=== PATIENT | male | born 1960 | race Caucasian/White ===

== ENCOUNTER 2017-06-06 11:37 | Inpatient (IN) | payer BC ==
[~2017-06-06] VITALS: Ht 177.8 cm; Wt 157.7 kg
[2017-06-06 13:23] LABS: Basophils # (auto) 0.1 uL; Hemoglobin 12.9 g/dL (13.5-17.5); Lymphocytes # (auto) 1.3 uL; Monocytes # (auto) 0.6 uL; White Blood Cell 6.9 10^3/uL (4.4-10.8)
[2017-06-06 13:25] LABS: Basophils % (auto) 0.8 % (0.0-2.0); Eosinophils # (auto) 0 uL; Eosinophils % (auto) 0.7 % (0.0-7.0); Hematocrit 40.2 % (41.0-53.0); Lymphocytes % (auto) 18.5 % (10.0-50.0); Mean Corpuscular Hemoglobin 26.6 pg (28.0-32.0); Mean Corpuscular Hgb Conc. 32.1 g/dL (32.0-36.0); Mean Corpuscular Volume 82.7 fL (80.0-100.0); Monocytes % (auto) 8.4 % (0.0-12.0); Neutrophils % (auto) 71.6 % (37.0-80.0); Nucleated Red Blood Cells % 0.1 %; Platelet Count (auto) 233 10^3/uL (140-450); Red Blood Cells 4.87 10^6/uL (4.5-5.90); Red Cell Distribution Width 15.5 % (11.8-14.3)
[2017-06-06 13:37] LABS: Urine Bacteria NONE SEEN /hpf (None Seen); Urine Blood Negative /uL (Negative); Urine Specific Gravity 1.007 (1.001-1.035); Urine WBC 1 /hpf (0 - 3)
[2017-06-06 13:42] LABS: INR 3.27 (0.9-1.15); Partial Thromboplastin Time 37.6 sec (22.64-33.71); Prothrombin Time 36.1 sec (9.37-12.3)
[2017-06-06 13:45] LABS: Alanine Aminotransferase 22 U/L (16-61); Albumin 3.6 g/dL (3.4-5.0); Alkaline Phosphatase 45 U/L (45-117); Anion Gap 9 (5-15); Aspartate Aminotransferase 23 U/L (15-37); Bilirubin, Total 0.9 mg/dL (0.2-1.0); Blood Urea Nitrogen 10 mg/dL (7-18); Calcium 8.5 mg/dL (8.5-10.1); Carbon Dioxide 28 mmol/L (21-32); Chloride 98 mmol/L (98-107); GFR African American 88 mL/min; GFR Non-African American 73 mL/min; Glucose 245 mg/dL (74-106); Potassium 3.6 mmol/L (3.5-5.1); Sodium 135 mmol/L (136-145); Total Protein 7.5 g/dL (6.4-8.2)
[2017-06-06] MEDS ORDERED: FUROSEMIDE 40 MG/4 ML VIAL IV ONE ×2 (15:45→16:00)
[2017-06-06] MEDS ORDERED: POTASSIUM CHL 10 Meq TABLET PO ONE ×2 (15:45→16:00)
[2017-06-06] MEDS ORDERED: SPIRONOLACTONE 25 MG TAB PO ONE ×2 (15:45→16:00)
[2017-06-06] MEDS ORDERED: DEXTROSE (50%) 50ML SYRG IV PRN (15:45)
[2017-06-06] MEDS ORDERED: MULTIPLE VITAMIN TAB PO ONE (16:00)
[2017-06-06] MEDS ORDERED: ACETAMINOPHEN 325 MG TAB PO PRN (16:00)
[2017-06-06] MEDS ORDERED: ONDANSETRON HCL 4 MG/2 ML VIAL IV PRN (16:00)
[2017-06-06] MEDS ORDERED: LOSARTAN POTASSIUM 50 MG TAB PO ONE (16:00)
[2017-06-06] MEDS ORDERED: METOPROLOL TARTRATE 25 MG TAB PO ONE (16:00)
[2017-06-06] MEDS ORDERED: MORPHINE SULFATE 4 MG/ML SYR/VIAL IV PRN ×2 (16:00)
[2017-06-06] MEDS ORDERED: NITROGLYCERIN 0.4 MG SL TAB SL PRN (16:00)
[2017-06-06] MEDS ORDERED: DILTIAZEM HCL 60 MG TAB PO ONE (16:00)
[2017-06-06] MEDS ORDERED: FAMOTIDINE 20 MG TAB PO ONE (16:00)
[2017-06-06] MEDS ORDERED: TEMAZEPAM 15 MG CAP PO PRN (16:00)
[2017-06-06] MEDS ORDERED: DOCUSATE SOD 100 MG CAP PO PRN (16:00)
[2017-06-06] MEDS: InsuLIN REG 1unit/0.01ml Soln (100units/ml) SC SCH (17:27)
[2017-06-06] MEDS: ACCU-CHEK COMFORT CURVE STRIP VI SCH ×2 (17:27→22:03)
[2017-06-06] MEDS ORDERED: INSULIN NPH Isophane (HUMAN) 1unit/0.01ml Susp(100units/ml) SC SCH (18:00)
[2017-06-06] MEDS: glyBURIDE 5 MG TAB PO SCH (18:30)
[2017-06-06] MEDS ORDERED: Niacin SR 500mg TAB PO SCH (22:00)
[2017-06-06] MEDS ORDERED: InsuLIN REG 1unit/0.01ml Soln (100units/ml) SC SCH (22:00)
[2017-06-06] MEDS: SODIUM CHLOR 0.9% PF (SALINE LOCK) 10ML VIAL IV SCH (22:03)
[2017-06-06] MEDS: METOPROLOL TARTRATE 25 MG TAB PO SCH (22:12)
[2017-06-06] MEDS: DILTIAZEM HCL 60 MG TAB PO SCH (22:13)
[2017-06-06] MEDS: FAMOTIDINE 20 MG TAB PO SCH (22:13)
[2017-06-07] VITALS (9 sets, daily range): BP systolic 120–134; BP diastolic 66–89
[2017-06-07] MEDS ORDERED: INSUINJ2 SC (02:59)
[2017-06-07] MEDS ORDERED: FURO40TA4 PO (02:59)
[2017-06-07] MEDS ORDERED: METO25TA5 PO (02:59)
[2017-06-07] MEDS ORDERED: METF-372 PO (02:59)
[2017-06-07] MEDS ORDERED: GLYB5TAB8 PO (02:59)
[2017-06-07] MEDS ORDERED: LOSA100T27 PO (02:59)
[2017-06-07] MEDS ORDERED: POTA-167 PO (02:59)
[2017-06-07] MEDS ORDERED: WARF6TAB21 PO ×2 (02:59)
[2017-06-07] MEDS ORDERED: NIAC500C3 PO (02:59)
[2017-06-07] MEDS ORDERED: FENO160T8 PO (02:59)
[2017-06-07] MEDS ORDERED: DILT60TA27 PO (02:59)
[2017-06-07] MEDS: DILTIAZEM HCL 60 MG TAB PO SCH ×3 (05:37→13:42)
[2017-06-07] MEDS: SODIUM CHLOR 0.9% PF (SALINE LOCK) 10ML VIAL IV SCH ×2 (05:37→13:57)
[2017-06-07] MEDS: glyBURIDE 5 MG TAB PO SCH (06:08)
[2017-06-07] MEDS: ACCU-CHEK COMFORT CURVE STRIP VI SCH ×3 (06:09→18:43)
[2017-06-07] MEDS: InsuLIN REG 1unit/0.01ml Soln (100units/ml) SC SCH ×3 (06:09→18:43)
[2017-06-07 06:37] LABS: Basophils # (auto) 0 uL; Basophils % (auto) 0.7 % (0.0-2.0); Eosinophils # (auto) 0.1 uL; INR 2.43 (0.9-1.15); Lymphocytes # (auto) 1.3 uL; Mean Corpuscular Hemoglobin 26.8 pg (28.0-32.0); Mean Corpuscular Hgb Conc. 32.1 g/dL (32.0-36.0); Mean Corpuscular Volume 83.4 fL (80.0-100.0); Prothrombin Time 26.7 sec (9.37-12.3)
[2017-06-07 06:40] LABS: Eosinophils % (auto) 1.2 % (0.0-7.0); Hematocrit 38.1 % (41.0-53.0); Hemoglobin 12.2 g/dL (13.5-17.5); Lymphocytes % (auto) 19.8 % (10.0-50.0); Monocytes # (auto) 0.7 uL; Neutrophils # (auto) 4.4 uL; Neutrophils % (auto) 67.3 % (37.0-80.0); Nucleated Red Blood Cells % 0.1 %; Platelet Count (auto) 203 10^3/uL (140-450); Red Blood Cells 4.56 10^6/uL (4.5-5.90); Red Cell Distribution Width 15.9 % (11.8-14.3); White Blood Cell 6.5 10^3/uL (4.4-10.8)
[2017-06-07] MEDS ORDERED: INSULIN NPH Isophane (HUMAN) 1unit/0.01ml Susp(100units/ml) SC SCH (07:00)
[2017-06-07 07:11] LABS: BUN/Creatinine Ratio 11.7; Potassium 3.3 mmol/L (3.5-5.1)
[2017-06-07 07:12] LABS: Albumin 3.4 g/dL (3.4-5.0); Bilirubin, Total 1.1 mg/dL (0.2-1.0); Calcium 8.8 mg/dL (8.5-10.1); Total Protein 6.9 g/dL (6.4-8.2)
[2017-06-07] MEDS ORDERED: ADENOSINE 132 MG in GIVE UN-DILUTED 0 ML IV STA (08:36)
[2017-06-07] MEDS ORDERED: POTASSIUM CHL 10 Meq TABLET PO SCH (10:00)
[2017-06-07] MEDS ORDERED: MULTIPLE VITAMIN TAB PO SCH (10:00)
[2017-06-07] MEDS ORDERED: FENOFIBRATE 160MG TAB PO SCH (10:00)
[2017-06-07] MEDS ORDERED: LOSARTAN POTASSIUM 50 MG TAB PO SCH (10:00)
[2017-06-07] MEDS ORDERED: SPIRONOLACTONE 25 MG TAB PO SCH (10:00)
[2017-06-07] MEDS ORDERED: FUROSEMIDE 40 MG/4 ML VIAL IV SCH (10:00)
[2017-06-07] MEDS ORDERED: OPTISON 3ml Vial for INJ IV ONE (12:41)
[2017-06-07] MEDS: FAMOTIDINE 20 MG TAB PO SCH (13:42)
[2017-06-07] MEDS: METOPROLOL TARTRATE 25 MG TAB PO SCH (13:43)
[2017-06-07] MEDS ORDERED: SPIR25TA88 PO (15:09)
[2017-06-07] MEDS ORDERED: WARFARIN SODIUM 2 MG TAB PO ONE (17:00)
== END 2017-06-07 19:30 | disposition home health service (06) | DRG 291 ==
LOC: ER 11:37 → TELE 11:38 → TELE-CENTR 23:47
PROVIDERS: ADMIT Internal Medicine; ATTEND Internal Medicine
PROC: 5A09357 Assistance with Respiratory Ventilation, Less than 24 Consecutive Hours, Continuous Positive Airway Pressure (ICD-10-PCS; principal; 2017-06-07)
DX: I13.0 Hypertensive heart and chronic kidney disease with heart failure and stage 1 through stage 4 chronic kidney disease, or unspecified chronic kidney disease (principal); I50.43 Acute on chronic combined systolic (congestive) and diastolic (congestive) heart failure; E11.21 Type 2 diabetes mellitus with diabetic nephropathy; I48.92 Unspecified atrial flutter; E11.22 Type 2 diabetes mellitus with diabetic chronic kidney disease; E66.01 Morbid (severe) obesity due to excess calories; Z79.01 Long term (current) use of anticoagulants; I48.0 Paroxysmal atrial fibrillation; E87.1 Hypo-osmolality and hyponatremia; Z68.42 Body mass index [BMI] 45.0-49.9, adult; D63.8 Anemia in other chronic diseases classified elsewhere; G47.33 Obstructive sleep apnea (adult) (pediatric); E78.5 Hyperlipidemia, unspecified; I48.2 Chronic atrial fibrillation; N18.2 Chronic kidney disease, stage 2 (mild); Z79.4 Long term (current) use of insulin; Z82.49 Family history of ischemic heart disease and other diseases of the circulatory system; Z83.3 Family history of diabetes mellitus; Z88.6 Allergy status to analgesic agent
CPT/HCPCS: 36415; 71046; 78452; 80053; 81001; 82962; 83036; 83880; 84443; 84484; 85025; 85610; 85730; 93005; 93017; 93306; 93970; 94660; J0153; J1815; Q9956

== ENCOUNTER 2019-04-10 13:08 | Inpatient (IN) | payer BC, OTHER ==
[~2019-04-10] VITALS: Ht 182.9 cm; Wt 148.1 kg
[~2019-04-10 13:08] MED LIST: DILT60TA27 PO; FENO160T8 PO; FURO40TA4 PO; GLYB5TAB8 PO; INSUINJ2 SC; LOSA-39 PO; METF-372 PO; METO25TA5 PO; NIAC500C3 PO; POTA-167 PO; SPIR25TA88 PO; WARF6TAB21 PO
[2019-04-10] MEDS ORDERED: ONDANSETRON HCL 4 MG/2 ML VIAL IV ONE (13:45)
[2019-04-10 14:10] LABS: Basophils # (auto) 0 uL; Basophils % (auto) 0.5 % (0.0-2.0); Eosinophils # (auto) 0.1 uL; Eosinophils % (auto) 1.2 % (0.0-7.0); Hematocrit 33.3 % (41.0-53.0); Hemoglobin 10.8 g/dL (13.5-17.5); Lymphocytes # (auto) 0.9 uL; Lymphocytes % (auto) 13.9 % (10.0-50.0); Mean Corpuscular Hemoglobin 29.8 pg (28.0-32.0); Mean Corpuscular Hgb Conc. 32.4 g/dL (32.0-36.0); Mean Corpuscular Volume 92.2 fL (80.0-100.0); Monocytes # (auto) 0.5 uL; Monocytes % (auto) 7.3 % (0.0-12.0); Neutrophils % (auto) 77.1 % (37.0-80.0); Nucleated Red Blood Cells % 0.1 %; Platelet Count (auto) 147 10^3/uL (140-450); Red Blood Cells 3.61 10^6/uL (4.5-5.90); Red Cell Distribution Width 15.7 % (11.8-14.3); White Blood Cell 6.5 10^3/uL (4.4-10.8)
[2019-04-10 14:28] LABS: Albumin 3.7 g/dL (3.4-5.0); Anion Gap 10 (5-15); Calcium 9.1 mg/dL (8.5-10.1); Carbon Dioxide 13 mmol/L (21-32); Chloride 115 mmol/L (98-107); Glucose 59 mg/dL (74-106); Sodium 138 mmol/L (136-145)
[2019-04-10 14:33] LABS: Alanine Aminotransferase 28 U/L (16-61); Alkaline Phosphatase 21 U/L (45-117); Aspartate Aminotransferase 34 U/L (15-37); BUN/Creatinine Ratio 16.3; Bilirubin, Total 0.5 mg/dL (0.2-1.0); GFR African American 14 mL/min; GFR Non-African American 12 mL/min; Total Protein 7.4 g/dL (6.4-8.2)
[2019-04-10 14:39] LABS: Blood Urea Nitrogen 87 mg/dL (7-18); Potassium 6.1 mmol/L (3.5-5.1)
[2019-04-10] MEDS ORDERED: CALCIUM GLUC 4.65meq/50ml D5AE 50 ML IV ONE (14:45)
[2019-04-10] MEDS ORDERED: ALBUTEROL SULF 2.5 MG/0.5ML(0.5%) NEB SOLN HHN ONE (14:45)
[2019-04-10] MEDS ORDERED: SODIUM BICARBONATE 8.4 % INJ 50ML VIAL IV ONE ×2 (14:45→20:30)
[2019-04-10] MEDS ORDERED: ONDANSETRON HCL 4 MG/2 ML VIAL IV PRN (17:15)
[2019-04-10] MEDS ORDERED: MORPHINE SULF INJ 2 MG/ML SYRINGE 1ML IV PRN ×2 (17:15)
[2019-04-10] MEDS ORDERED: SODIUM BICARBONATE 50ML VIAL 50 ML in SOD CHL 0.45% 1,000 ML IV SCH (17:15)
[2019-04-10] MEDS ORDERED: hydrALAZINE HCL 20 MG/ML VL IV PRN (17:15)
[2019-04-10] MEDS ORDERED: NITROGLYCERIN 0.4 MG SL TAB SL PRN (17:15)
[2019-04-10] MEDS ORDERED: ACETAMINOPHEN 500 MG TAB PO PRN (17:15)
[2019-04-10] MEDS ORDERED: ACCU-CHEK COMFORT CURVE STRIP VI ONE (17:15)
[2019-04-10 17:45] LABS: Phosphorus 4.7 mg/dL (2.5-4.90)
[2019-04-10] MEDS ORDERED: SODIUM ZIRCONIUM CYCL 10 GM PAK PO ONE (17:45)
[2019-04-10 18:21] LABS: INR 2.51 (0.9-1.15); Partial Thromboplastin Time 38.3 sec (23.64-32.05)
[2019-04-10] MEDS ORDERED: DEXTROSE 50% SYRINGE 50 ML IV ONE (18:30)
[2019-04-10] MEDS ORDERED: DEXTROSE (50%) 50ML SYRG IV ONE (18:30)
[2019-04-10 19:28] LABS: BUN/Creatinine Ratio 14.8; Potassium 5.3 mmol/L (3.5-5.1)
[2019-04-10 19:29] LABS: Calcium 9.1 mg/dL (8.5-10.1)
[2019-04-10] MEDS ORDERED: WARFARIN SODIUM 1 MG TAB PO ONE (19:45)
[2019-04-10] MEDS: SODIUM BICARBONATE 50ML VIAL 50 ML in D5W/SOD CHL 0.45% 1,000 ML IV SCH (20:25)
[2019-04-10] MEDS: ACCU-CHEK COMFORT CURVE STRIP VI SCH (20:26)
[2019-04-10] MEDS ORDERED: SODIUM CHLORIDE 0.9% 1,000 ML IV ONE (20:30)
[2019-04-10] MEDS ORDERED: SODIUM BICARBONATE 8.4% INJ 50ML SYRINGE ONE ×5 (21:11)
[2019-04-11] VITALS (8 sets, daily range): BP systolic 105–156; BP diastolic 25–81
[2019-04-11] MEDS ORDERED: ALBUMIN 5% 250 ML IV ONE ×2 (00:30→00:34)
--- NOTE | 2019-04-11 01:50 | NUR ---
Patient brought to [facility] Connected to monitor. Physical assessment will be charted under interventions. Running fluid at 100 ml/hr. No signs of respiratory distress and patient denied any pain.
--- NOTE | 2019-04-11 04:13 | NUR ---
accucheck done Patient sugar in the 50s, given oral liquids. Patient alert and oriented, able to swallow. Will reevaluate and recheck.
--- NOTE | 2019-04-11 04:51 | NUR ---
patient resting Unlabored even breathing. Patient on room air saturation above 98%. continue to monitor call light within reach.
[2019-04-11] MEDS: SODIUM BICARBONATE 50ML VIAL 50 ML in D5W/SOD CHL 0.45% 1,000 ML IV SCH (05:00)
[2019-04-11 06:15] LABS: Basophils # (auto) 0.1 uL; Eosinophils # (auto) 0.1 uL; Hematocrit 29.3 % (41.0-53.0); Hemoglobin 9.6 g/dL (13.5-17.5); Lymphocytes # (auto) 0.8 uL; Lymphocytes % (auto) 15.2 % (10.0-50.0); Mean Corpuscular Hemoglobin 30.4 pg (28.0-32.0); Mean Corpuscular Hgb Conc. 32.7 g/dL (32.0-36.0); Mean Corpuscular Volume 92.8 fL (80.0-100.0); Monocytes # (auto) 0.5 uL; Monocytes % (auto) 9.2 % (0.0-12.0); Neutrophils % (auto) 73.6 % (37.0-80.0); Platelet Count (auto) 133 10^3/uL (140-450); Red Blood Cells 3.16 10^6/uL (4.5-5.90); Red Cell Distribution Width 15.9 % (11.8-14.3); White Blood Cell 5.4 10^3/uL (4.4-10.8)
[2019-04-11 06:36] LABS: Potassium 4.9 mmol/L (3.5-5.1)
[2019-04-11] MEDS: ACCU-CHEK COMFORT CURVE STRIP VI SCH ×5 (06:40→20:00)
[2019-04-11 06:42] LABS: INR 2.6 (0.9-1.15)
[2019-04-11 06:46] LABS: Albumin 3.5 g/dL (3.4-5.0); BUN/Creatinine Ratio 15.4; Bilirubin, Total 0.4 mg/dL (0.2-1.0); Calcium 8.8 mg/dL (8.5-10.1); Total Protein 6.5 g/dL (6.4-8.2)
--- NOTE | 2019-04-11 07:03 | NUR ---
Endorse care Will endorse care to day nurse.
--- NOTE | 2019-04-11 07:30 | NUR ---
RECEIVED PATIENT SITTING UP IN THE BED, A/O TIMES 4, O2 BY A2L BY N/C, D5.45 WITH SODIUM BICARB AT 100ML/HR INFUSING BY THE IV PUMP INTO THE LEFT HAND, SALINE LOCK INTO THE ALTAF 22G FLUSHED AND PATENT, STATES HE USES THE URINAL OR THE BSC, BUT HAS BEEN HAVING A HARD TIME URINATING,
--- NOTE | 2019-04-11 07:55 | NUR ---
DR GARCIA IN TO SEE THE PATIENT AND AND STATED TO INSERTED A SERNA, DUE TO URINARY RETENTION
[2019-04-11] MEDS ORDERED: FUROSEMIDE 20 MG/2 ML VIAL IV ONE (09:00)
--- NOTE | 2019-04-11 09:15 | NUR ---
INSERTED 16F SERNA CATHETER USING STERILE TECHNIQUE RECEIVED 700ML OF CLEAR YELLOW IN RETURN AND SENT SPECIMEN TO THE LAB
[2019-04-11] MEDS: FAMOTIDINE 20 MG TAB PO SCH (09:53)
--- NOTE | 2019-04-11 09:55 | NUR ---
DISCUSSED MEDICATIONS WITH THE PATIENT REGARDING THE DOSAGE, USAGE AND THE SIDE EFFECTS, VERBALIZED THAT HE UNDERSTOOD AND MEDS GIVEN ORDERED
[2019-04-11] MEDS: METOPROLOL SUCCINATE XL 50 MG TAB PO SCH (09:56)
[2019-04-11 10:00] LABS: Sodium Urine 63 mmol/L (40-220)
[2019-04-11] MEDS ORDERED: FUROSEMIDE 40 MG/4 ML VIAL IV ONE (10:00)
[2019-04-11 10:13] LABS: Urine Bacteria FEW /hpf (None Seen); Urine Blood TRACE /uL (Negative); Urine Mucus FEW (None Seen); Urine Specific Gravity 1.012 (1.001-1.035); Urine WBC 2 /hpf (0 - 3)
--- NOTE | 2019-04-11 11:55 | NUR ---
DR PATIÑO IN TO SEE THE PATIENT AND WROTE NEW ORDERS
--- NOTE | 2019-04-11 12:15 | NUR ---
STOOL COLLECTED AND SENT TO THE LAB FOR C-DIFF
--- NOTE | 2019-04-11 12:30 | NUR ---
PATIENT SITTING UP IN BED EATING HIS LUNCH NO HELP NEEDED
--- NOTE | 2019-04-11 12:56 | NUR ---
FAXED TRANSFER ORDER TO [facility]
--- NOTE | 2019-04-11 13:00 | NUR ---
ORDERS WRITTEN FOR PATIENT TO GO TO [facility]
[2019-04-11] MEDS: D5W/SOD CHL 0.45% 1,000 ML IV SCH (13:50)
--- NOTE | 2019-04-11 13:50 | NUR ---
STARTED FLUIDS ON THE PATIENT D5.45 AT 60ML/HR BY THE IV PUMP,
--- NOTE | 2019-04-11 14:48 | NUR ---
Transfer: per Ashley PALMIRA Conner pt has termed [facility] so pt will not be transferred to [facility].
--- NOTE | 2019-04-11 15:00 | NUR ---
AWARE THAT PATIENT IS NOT GOING TO BE TRANSFERRED TO [facility]
--- NOTE | 2019-04-11 15:38 | NUR ---
SITTING UP IN THE BED, WATCHING TV, AT THE BEDSIDE, NO COMPLAINTS
--- NOTE | 2019-04-11 16:12 | NUR ---
PAGED DR SKINNER TO UPDATE CURRENT STATUS, AWAITING RETURN CALL
--- NOTE | 2019-04-11 16:22 | NUR ---
ORDER RECEIVED TO TRANSFER TO TELE
[2019-04-11] MEDS ORDERED: WARFARIN SODIUM 1 MG TAB PO ONE (17:00)
--- NOTE | 2019-04-11 17:07 | NUR ---
REPORT CALLED TO [facility], PATIENT PLACED ON TELE 77 , AND WILL BE TRANSFERRED TO ROOM 270b BY THE BED
--- NOTE | 2019-04-11 17:08 | NUR ---
EXPRESS TO THE THAT SHE SHOULD CALL [facility] TOMORROW AND SEE WHAT IS GOING ON WITH THE INSURANCE, BECAUSE SOME ON CALLED FROM [facility] AND STATED THEY DO NOT HAVE INSURANCE AND HUNG UP ON ME
--- NOTE | 2019-04-11 17:45 | NUR ---
TAKEN TO ROOM 270B BY THE BED WITH ALL BELONGINGS AND WITH THE PATIENT
--- NOTE | 2019-04-11 17:45 | NUR ---
[facility] pt transferred to floor BILL AGUERO transferred to med-surg/tele floor via bed. All personal belongings transferred with patient to receiving floor. No distress noted. at bedside. BILL AGUERO admitted to Telemetry unit after report received. Patient oriented to BERNABE ALMANZA RN primary RN, unit, room, bed, and unit policies regarding patient care and visiting hours. Patient now on continuous telemetry monitoring, tele box #[id number] and telemetry reading on arrival to unit is a-fib. Patient placed on bedside oxygen, weighed by bedscale and encouraged to call if they need something. All questions and concerns addressed, patient verbalized understanding.
--- NOTE | 2019-04-11 19:18 | NUR ---
Closing Shift Note Patient resting in bed. No distress noted. Report given. Will endorse care to the maintenance technician 2nd shift RN.
--- NOTE | 2019-04-11 19:40 | NUR ---
Opening Shift Note Assumed care of patient, awake and alert. No S/S of distress/SOB or pain. Instructed on POC and to call for assist PRN, will continue to monitor for changes Q1hr and PRN. Rendon hang below bed and draining to gravity. Patient ask to be assisted to bedside commode. Signed: 04/12/19 at 0018 by YUDITH THOMPSON RN RN
--- NOTE | 2019-04-11 21:34 | NUR ---
Respiratory note: AT BEDSIDE. PT SLEEPING COMFORTABLY AT THIS TIME, NO RESPIRATORY DISTRESS NOTED. PT REFUSED CPAP FOR NOC, PT AWARE TO HAVE RT PAGED IF CPAP IS NEEDED. WILL CONTINUE TO MONITOR.
[2019-04-12] MEDS: ACCU-CHEK COMFORT CURVE STRIP VI SCH ×6 (03:59→20:03)
[2019-04-12 05:00] VITALS: BP 109/71
[2019-04-12 05:40] LABS: Basophils # (auto) 0 uL; Basophils % (auto) 0.9 % (0.0-2.0); Eosinophils # (auto) 0.1 uL; Eosinophils % (auto) 2.4 % (0.0-7.0); Hematocrit 29.6 % (41.0-53.0); Hemoglobin 9.7 g/dL (13.5-17.5); Lymphocytes % (auto) 18.7 % (10.0-50.0); Mean Corpuscular Hemoglobin 30.4 pg (28.0-32.0); Mean Corpuscular Hgb Conc. 32.8 g/dL (32.0-36.0); Mean Corpuscular Volume 92.7 fL (80.0-100.0); Monocytes # (auto) 0.6 uL; Monocytes % (auto) 10.9 % (0.0-12.0); Neutrophils # (auto) 3.5 uL; Neutrophils % (auto) 67.1 % (37.0-80.0); Nucleated Red Blood Cells % 0.1 %; Platelet Count (auto) 132 10^3/uL (140-450); Red Blood Cells 3.19 10^6/uL (4.5-5.90); Red Cell Distribution Width 15.9 % (11.8-14.3); White Blood Cell 5.3 10^3/uL (4.4-10.8)
[2019-04-12 05:54] LABS: BUN/Creatinine Ratio 15.3; Calcium 8.9 mg/dL (8.5-10.1); INR 2.55 (0.9-1.15); Partial Thromboplastin Time 36.4 sec (23.64-32.05); Potassium 5.4 mmol/L (3.5-5.1)
[2019-04-12] MEDS: D5W/SOD CHL 0.45% 1,000 ML IV SCH (06:15)
--- NOTE | 2019-04-12 07:40 | NUR ---
Opening Shift Note Assumed care of patient, awake and alert. No S/S of distress/SOB or pain.Instructed on POC and to call for assist PRN, will continue to monitor for changes Q1hr and PRN. Bed is in lowest position, bed rails X2, wheels locked. Patient has bedside commode at bedside.
[2019-04-12] MEDS ORDERED: SODIUM ZIRCONIUM CYCL 10 GM PAK PO ONE (08:15)
[2019-04-12] MEDS ORDERED: FUROSEMIDE 20 MG/2 ML VIAL IV ONE (08:15)
[2019-04-12 09:00] VITALS: BP 119/66
[2019-04-12] MEDS ORDERED: FUROSEMIDE 40 MG/4 ML VIAL IV ONE (09:15)
[2019-04-12] MEDS: ALLOPURINOL 100 MG TAB PO SCH (11:15)
[2019-04-12] MEDS: SODIUM BICARBONATE 650 MG TAB PO SCH ×2 (11:15→21:51)
[2019-04-12] MEDS: METOPROLOL SUCCINATE XL 50 MG TAB PO SCH ×2 (11:15→17:26)
[2019-04-12] MEDS: FAMOTIDINE 20 MG TAB PO SCH (11:16)
[2019-04-12 13:00] VITALS: BP 127/91
--- NOTE | 2019-04-12 14:00 | NUR ---
Critical Lab Notified by lab that patient has a critical lab, potassium is 5.9. Will notify
--- NOTE | 2019-04-12 14:05 | NUR ---
MD aware of Critical Made MD aware of critical lab value, Potassium is 5.9. New orders given.
--- NOTE | 2019-04-12 14:20 | NUR ---
WOUND CARE NOTE: IN TO SEE PATIENT AT THIS TIME PER WOUND CARE CONSULT REQUEST. PATIENT ADMITTED TO [facility] WITH DIAGNOSIS OF SEPSIS. CURRENT RUBA SCORE IS 20. PATIENT IS FULLY AMBULATORY, CAN SELF TURN/REPOSITION SELF. PATIENT HAS INTACT SKIN. BILATERAL LOWER LEGS/FEET ARE NOTED TO HAVE HEMOSIDERIN STAIN NOTED, WITH PATCHY XEROTIC SKIN NOTED. PATIENT WOULD BENEFIT FROM BID APPLICATIONS WITH HYDROGUARD OIL BASED CREAM TO BOTH LOWER LEGS/FEET. SKIN/WOUND CARE PLAN IMPLEMENTED. NO FURTHER WOUND CARE MONITORING NEEDED AT THIS TIME. Addendum: 04/12/19 at 2008 by Apple Velez RN Amended: Links added.
--- NOTE | 2019-04-12 14:50 | NUR ---
faxed [facility] transfer order along with labs, meds, progress notes to [facility]
[2019-04-12] MEDS: SODIUM ZIRCONIUM CYCL 10 GM PAK PO SCH ×2 (15:11→21:51)
[2019-04-12] MEDS ORDERED: WARFARIN SODIUM 2 MG TAB PO ONE (17:00)
[2019-04-12 17:12] VITALS: BP 147/86
[2019-04-12] MEDS ORDERED: TAMSULOSIN HYDROCHLORIDE 0.4 MG CAP PO SCH (18:00)
--- NOTE | 2019-04-12 19:14 | NUR ---
Closing Shift Note Patient resting in bed. No distress noted. Will endorse care to [facility] shift lead RN. Spoke with Dion, approximately an hour ago. Updated on recent vitals and labs. Per software sales representative, she will speak with MD. She states that they normally do not like to transfer patients with an up-trending potassium. Metrologist to call back and update this RN.
--- NOTE | 2019-04-12 19:32 | NUR ---
Ambulated patient to restroom.
--- NOTE | 2019-04-12 20:01 | NUR ---
Spoke with Renetta the manager integrity at [facility] and she expressed to me that after they reviewed the case they will not be transferring the patient tonight. They will callback tomorrow and followup.
--- NOTE | 2019-04-12 21:10 | NUR ---
Leg treatment given according to wound care consult. Washed patient legs with warm water and soap. Patted dry once washed. Then applied generous amount of hydraguard to patient legs. placed chucks underneath patient legs to avoid any transference onto sheets.
[2019-04-12 22:00] VITALS: BP 108/71
[2019-04-13] MEDS: ACCU-CHEK COMFORT CURVE STRIP VI SCH ×4 (00:37→12:00)
--- NOTE | 2019-04-13 00:47 | NUR ---
RT paged to place patient on CPAP.
--- NOTE | 2019-04-13 04:40 | NUR ---
Upon emptying gamboa catheter bag there was some loose blood clots in the distal tube. the proximal portion of the tube immediately from the penis had heavily blood tinged urine.
[2019-04-13 05:00] VITALS: BP 106/82
[2019-04-13 05:33] LABS: Basophils # (auto) 0.1 uL; Basophils % (auto) 1.2 % (0.0-2.0); Eosinophils # (auto) 0.2 uL; Hematocrit 32.1 % (41.0-53.0); Hemoglobin 10.5 g/dL (13.5-17.5); Lymphocytes # (auto) 1.1 uL; Lymphocytes % (auto) 19.5 % (10.0-50.0); Mean Corpuscular Hemoglobin 29.9 pg (28.0-32.0); Mean Corpuscular Hgb Conc. 32.6 g/dL (32.0-36.0); Mean Corpuscular Volume 91.9 fL (80.0-100.0); Monocytes # (auto) 0.6 uL; Monocytes % (auto) 10.2 % (0.0-12.0); Neutrophils # (auto) 3.8 uL; Neutrophils % (auto) 66.1 % (37.0-80.0); Platelet Count (auto) 131 10^3/uL (140-450); Red Cell Distribution Width 15.7 % (11.8-14.3); White Blood Cell 5.8 10^3/uL (4.4-10.8)
[2019-04-13] MEDS: SODIUM ZIRCONIUM CYCL 10 GM PAK PO SCH (05:42)
[2019-04-13 05:47] LABS: INR 2.44 (0.9-1.15)
[2019-04-13 05:57] LABS: Potassium 4.6 mmol/L (3.5-5.1)
[2019-04-13 06:01] LABS: BUN/Creatinine Ratio 15.7
--- NOTE | 2019-04-13 07:30 | NUR ---
Opening Shift Note Assumed care of patient, awake and alert. No S/S of distress/SOB or pain. Patient has some small blood clots in the distal gamboa tube and blood tinged urine in the proximal portion of the gamboa tubing, but has no pain will continue to monitor urine output/characteristics Q1hr and PRN. Patient is instructed on POC and to call for assist PRN, will continue to monitor for changes Q1hr and PRN.
[2019-04-13 09:00] VITALS: BP 112/64
[2019-04-13] MEDS: SODIUM BICARBONATE 650 MG TAB PO SCH (10:38)
[2019-04-13] MEDS: FAMOTIDINE 20 MG TAB PO SCH (10:38)
[2019-04-13] MEDS: ALLOPURINOL 100 MG TAB PO SCH (10:39)
[2019-04-13] MEDS: METOPROLOL SUCCINATE XL 50 MG TAB PO SCH (10:39)
--- NOTE | 2019-04-13 11:35 | NUR ---
Gamboa catheter dc'd Order to discontinue gamboa catheter. Gamboa dc'd with clean technique following deflation of balloon. Patient tolerated well with no complaints of pain. Continue care.
[2019-04-13] MEDS ORDERED: ALL100T PO (11:40)
[2019-04-13] MEDS ORDERED: DILT60TA27 PO (11:40)
[2019-04-13] MEDS ORDERED: TAM04C PO (11:40)
[2019-04-13 11:58] VITALS: BP 112/64
--- NOTE | 2019-04-13 12:15 | NUR ---
IV removal IV DC'd with sterile technique, catheter fully intact. Pressure dressing applied to site. Patient tolerated procedure well. Discharged with aftercare instructions per MD.
--- NOTE | 2019-04-13 12:18 | NUR ---
Bladder Scan Patient has urinated at this time in the toilet and urinal per AIRPLANE RIGGER, Summer. Patient expresses no discomfort. Bladder scan was completed after urination. Patient's bladder shows 18ml of residual. Will discharge per doctor's orders.
[2019-04-13 12:33] VITALS: BP 129/89
--- NOTE | 2019-04-13 13:50 | NUR ---
Discharge Discharge instructions given as ordered. Encourage to follow up with PMD as instructed at [facility]. All questions and concerns addressed. Patient verbalized understanding. Medication reconciliation form completed and copy given to patient. IV removed with catheter intact, pressure dressing applied, gamboa catheter removed. Telemetry unit returned to ICU. Patient taken to vehicle via wheelchair with all personal belongings, accompanied by staff and family member. No distress noted at time of departure.
== END 2019-04-13 13:50 | disposition home or self-care (01) | DRG 682 ==
LOC: ER 13:08 → TELE 13:09 → DOU IN ICU 04-11 01:40 → TELE-WESTW 04-11 17:47
PROVIDERS: ADMIT Nurse Practitioner Acute Care; ATTEND Internal Medicine
DX: N17.1 Acute kidney failure with acute cortical necrosis (principal); I50.33 Acute on chronic diastolic (congestive) heart failure; I13.0 Hypertensive heart and chronic kidney disease with heart failure and stage 1 through stage 4 chronic kidney disease, or unspecified chronic kidney disease; E87.2 Acidosis; Z68.41 Body mass index [BMI] 40.0-44.9, adult; E87.5 Hyperkalemia; E11.649 Type 2 diabetes mellitus with hypoglycemia without coma; E78.5 Hyperlipidemia, unspecified; I48.91 Unspecified atrial fibrillation; D63.8 Anemia in other chronic diseases classified elsewhere; E11.22 Type 2 diabetes mellitus with diabetic chronic kidney disease; E66.01 Morbid (severe) obesity due to excess calories; E78.00 Pure hypercholesterolemia, unspecified; G47.33 Obstructive sleep apnea (adult) (pediatric); I48.0 Paroxysmal atrial fibrillation; N13.9 Obstructive and reflux uropathy, unspecified; R33.9 Retention of urine, unspecified; R19.7 Diarrhea, unspecified; E79.0 Hyperuricemia without signs of inflammatory arthritis and tophaceous disease; N18.3 Chronic kidney disease, stage 3 (moderate); Z79.84 Long term (current) use of oral hypoglycemic drugs; Z79.899 Other long term (current) drug therapy; Z80.1 Family history of malignant neoplasm of trachea, bronchus and lung; Z82.3 Family history of stroke; Z82.49 Family history of ischemic heart disease and other diseases of the circulatory system; Z83.3 Family history of diabetes mellitus; Z88.5 Allergy status to narcotic agent
CPT/HCPCS: 36415; 71045; 76775; 80048; 80053; 80061; 81001; 82570; 82962; 83036; 83735; 83930; 83935; 84100; 84132; 84133; 84300; 84443; 84484; 84550; 85025; 85610; 85730; 87045; 87081; 87427; 87493; 94644; 94660; 96374; 96375; 97116; 97530; G0378; J0610